=== PATIENT | male | born 1945 | race Caucasian/White ===

== ENCOUNTER 2017-01-15 15:27 | Emergency (ER) | payer OTHER ==
[~2017-01-15] VITALS: Ht 177.8 cm; Wt 109.6 kg
[~2017-01-15 15:27] MED LIST: ASPIR-LOW81 MG PO; ASPIRIN EC325 MG PO; CELEBREX200 MG PO; ENDOCET 5-3251 EACH PO; FEOSOL325 MG PO; HYDROCODON-ACE1 EAC7 PO; HYGROTON50 MG PO; KLOR-CON 1010 ME1 PO
[2017-01-15 19:05] VITALS: BP 167/103
== END 2017-01-15 19:06 | disposition home or self-care (01) ==
LOC: EME 15:27
DX: S80.02XA Contusion of left knee, initial encounter (principal); M25.462 Effusion, left knee; W22.01XA Walked into wall, initial encounter; Z96.652 Presence of left artificial knee joint
CPT/HCPCS: 73564; 99281; 99284